=== PATIENT | female | born 1985 | race Caucasian/White ===

== ENCOUNTER → 2017-04-22 | Outpatient (CLI) | payer OTHER | END | disposition home or self-care (01) | LOC: PTH.S 11:30 | DX: G35 Multiple sclerosis (principal); R51 Headache ==

== ENCOUNTER → 2017-04-24 | Outpatient (CLI) | payer OTHER | END | disposition home or self-care (01) | LOC: RAD.S 04-19 09:19 | DX: G35 Multiple sclerosis (principal); R51 Headache; G95.9 Disease of spinal cord, unspecified; G93.89 Other specified disorders of brain; Z79.899 Other long term (current) drug therapy ==